=== PATIENT | male | born 1955 | race Two or more races ===

== ENCOUNTER 2017-05-18 20:33 | Emergency (ER) | payer BC ==
[~2017-05-18] VITALS: Ht 152.4 cm; Wt 72.6 kg
[2017-05-18 20:59] VITALS: BP 121/89
[2017-05-18] MEDS ORDERED: OXYcodone/APAP 10/325MG TABLET ONE (22:55)
[2017-05-18] MEDS ORDERED: OXYcodone/APAP 10/325MG TABLET PO ONE (23:00)
[2017-05-18] MEDS ORDERED: KETOROLAC 30 MG/1 ML IM ONE (23:00)
[2017-05-18 23:21] LABS: WHITE BLOOD COUNT 9.9 x10^3/uL (3.4-10)
[2017-05-18 23:26] LABS: BLOOD UREA NITROGEN 18 mg/dL (7-18)
[2017-05-19] MEDS ORDERED: KETOROLAC 30 MG/1 ML ONE (00:13)
== END 2017-05-19 00:52 | disposition home or self-care (01) ==
LOC: ED 23:59
DX: G89.11 Acute pain due to trauma (principal); N50.811 Right testicular pain; N50.812 Left testicular pain; E11.9 Type 2 diabetes mellitus without complications; Z85.46 Personal history of malignant neoplasm of prostate
CPT/HCPCS: 36415; 76870; 80048; 81003; 82040; 85025; 96372; 99285; J1885